=== PATIENT | female | born 1945 | race Caucasian/White ===

== ENCOUNTER → 2017-01-17 | Outpatient (CLI) | payer OTHER ==
[~2017-01-17] MED LIST: ASPI1TAB83 PO; ATEN25TA PO; LOSA50TA6 PO; OMEP20CA9 PO; PRAV20TA PO; RSTOPS OPB
--- NOTE | 2017-01-18 14:54 | MAMMOGRAPHY REPORT ---
BILATERAL DIGITAL SCREENING MAMMOGRAM WITH CAD: 01/17/2017 CLINICAL HISTORY: Routine screening. Patient has no complaints. TECHNIQUE: Current study was also evaluated with a Computer Aided Detection (CAD) system. Bilateral CC and MLO views were obtained. COMPARISON: Comparison is made to exams dated: 01/17/2016 mammogram, 01/10/2015 mammogram, 01/07/2014 m ammogram, 01/05/2013 mammogram, 01/03/2012 mammogram, and 01/01/2011 mammogram - [facility]. BREAST COMPOSITION: The tissue of both breasts is heterogeneously dense, which may obscure small mas ses. FINDINGS: A circumscribed round 8 mm mass is seen within the left lower inner quadrant, for which sp ot compression tomosynthesis views and possible breast ultrasound are recommended for further evaluat ion. This likely represents a cyst. Additionally, there are adjacent asymmetries in the left medial breast posteriorly, likely projecting at approximately 9:00 on the MLO view, for which spot compress ion views and possible ultrasound are recommended. The remainder of both breasts are stable compared to prior exams, without suspicious masses, calcific ations, or areas of architectural distortion noted. Scattered bilateral benign-appearing calcificati ons are not significantly changed. IMPRESSION: ACR BI-RADS CATEGORY 0: INCOMPLETE EVALUATION: NEED ADDITIONAL IMAGING EVALUATION Left breast mass and left breast asymmetries, for which additional imaging evaluation is recommended. The patient will be called to schedule an appointment. Approximately 10% of breast cancers are not detected with mammography. A negative mammographic report should not delay biopsy if a clinically suggestive mass is present. Mabel Hoang M.D. /:01/17/2017 16:29:54 Automatic Pinsetter Adjuster: Beronica HAQ(R)(M), [facility] letter sent: Addl Imaging 0 BI-RADS Code: ACR BI-RADS Category 0: Incomplete Evaluation: Need Additional Imaging Evaluation
== END | disposition home or self-care (01) ==
LOC: C.MAMM 09:44
PROVIDERS: ATTEND Obstetrics & Gynecology
DX: Z12.31 Encounter for screening mammogram for malignant neoplasm of breast (principal); N63 Unspecified lump in breast; N64.89 Other specified disorders of breast

== ENCOUNTER → 2017-01-28 | Outpatient (CLI) | payer OTHER ==
--- NOTE | 2017-01-28 14:16 | MAMMOGRAPHY REPORT ---
UNILATERAL LEFT DIGITAL DIAGNOSTIC MAMMOGRAM TOMOSYNTHESIS AND TARGETED BILATERAL ULTRASOUND: 01/29/20 CLINICAL HISTORY: 72-year-old woman called back from screening mammography for a partially circumscri bed 8mm mass in the lower inner quadrant of the left breast, and nodular asymmetries in the medial po sterior breast. At the time of diagnostic evaluation in the left breast, rereview of the full-field screening mammograms demonstrated another nodular asymmetry in the medial far posterior right breast on the CC view, which was also worked up with additional ultrasound. TECHNIQUE: Spot compression left CC and MLO 2-D and tomosynthesis images were obtained. COMPARISON: Comparison is made to exams dated: 01/17/2017 mammogram, 01/17/2016 mammogram, 01/10/2015 m ammogram, 07/22/2014 mammogram, 01/20/2014 ultrasound, and 01/20/2014 mammogram - [facility]. BREAST COMPOSITION: The tissue of the left breast is heterogeneously dense, which may obscure small masses. FINDINGS: Spot compression views of the left breast demonstrate persistence of a well-circumscribed, 7.4 x 7.0 mm mass in the lower inner anterior left breast. No associated calcification or architectu ral distortion. There is a 4.6 mm round, partially circumscribed mass in the medial posterior left b reast in the area of asymmetry, and possible second low density 5 mm mass in the area of second asymm etry. These are thought to project just above the posterior nipple line and just below the posterior nipple line on the spot compression MLO view. No focal area of architectural distortion or suspicio us calcifications are seen. Targeted ultrasound was performed throughout the medial left breast. In the 9:00 axis, 2 cm from the nipple, there is a round anechoic benign simple cyst with posterior acoustic enhancement, measuring 6.2 x 6.5 x 6.4 mm. This is thought to correlate with the dominant circumscribed mammographic mass a nd is benign. Other scattered cysts are identified in the left breast, within the 10:00 axis, 57 m f rom the nipple, measuring 3.9 x 4.1 x 5.6 mm, and in the 10:00 axis, 4 cm from the nipple, measuring 4.9 x 3.0 x 6.8 mm. Another anechoic circumscribed oval cyst is seen in the 11:00 left breast, 4 cm from the nipple, measuring 6.2 x 3.4 x 5.4 mm. Targeted ultrasound was performed at the medial right breast to assess for the nodular asymmetry in t he medial posterior aspect of the breast on the CC view. Scattered anechoic cysts are identified. I n particular, in the 12:00 right breast, 4 cm from the nipple, there is an oval circumscribed anechoi c cyst with posterior acoustic enhancement, measuring 6.4 x 3.1 x 5.2 mm. Another rounded anechoic c yst in the 2:00 right breast, 5 cm from the nipple, measures 6.0 x 4.7 x 6.7 mm. 2 cysts are identif ied in the 2:00 right breast 2 cm from the nipple, 1 cm deep to the dermis, the larger measures 6.1 x 2.5 mm. There is a questionable isoechoic to hypoechoic lesion in the 2:30 right breast, 4 cm from the nipple, measuring approximately 2.5 x 3.0 x 2.8 mm. Given its persistence in both planes this co uld represent an indeterminate solid mass versus prominent fat lobule. Nevertheless, it is different in appearance from all the other cysts identified in both breasts and definitive characterization wi th an ultrasound-guided core needle biopsy is recommended. IMPRESSION: ACR BI-RADS CATEGORY 4: SUSPICIOUS, TARGETED ULTRASOUND ACR BI-RADS CATEGORY 4: SUSPICIO US 1. Asymmetries and mass in the medial left breast corresponding to benign anechoic simple cysts on u ltrasound. 2. There are other cysts throughout the medial right breast on ultrasound, compatible with fibrocyst ic changes. 3. However, there is an indeterminate hypoechoic solid-appearing mass measuring 3 mm in the 2:30 rig ht breast, 4 cm from the nipple, which was incidentally identified on ultrasound. This mass is indet erminate, warranting definitive characterization with an ultrasound-guided core biopsy. These results and recommendations were discussed with the patient at the time of the exam. She tenta tively scheduled the biopsy prior to leaving our department. Approximately 10% of breast cancers are not detected with mammography. A negative mammographic report should not delay biopsy if a clinically suggestive mass is present. Lilian Alfonso M.D. ay/:01/28/2017 13:35:24 Bi Architect: Anna Pop, [facility] letter sent: Abnormal / BI-RADS Code: ACR BI-RADS Category 4: Suspicious Ultrasound BI-RADS: ACR BI-RADS Category 4: Suspici ous
== END | disposition home or self-care (01) ==
LOC: C.MAMM 10:33
PROVIDERS: ATTEND Obstetrics & Gynecology
DX: N63.0 Unspecified lump in unspecified breast (principal); R92.8 Other abnormal and inconclusive findings on diagnostic imaging of breast; N60.02 Solitary cyst of left breast

== ENCOUNTER → 2017-02-06 | Outpatient (CLI) | payer OTHER ==
--- NOTE | 2017-02-06 11:51 | Discharge Instructions ---
Discharge Instructions Procedure Procedure Date: Feb 06, 2017. Reason for visit: Right Mass. Discharge Discharge Date: Feb 06, 2017. Discharge Diagnosis: post right breast ultrasound guided core biopsy Instructions Activity Recommendations: Additional Limitations (see below) Return to School/Work: no limitations Recommended Home Diet: No Limitations Provider Instructions: ACTIVITY RECOMMENDATIONS: * No lifting, pushing, pulling or exercising the affected side for three days. RETURN TO SCHOOL/WORK: * You may return to work/school after the procedure, but do not perform any strenuous activities for 24 to 48 hours. MEDICATIONS: * Tylenol (two 325 mg) every four to six hours if needed for mild pain (if not allergic to Tylenol). DIET: * Resume previous diet. SPECIAL CARE INSTRUCTIONS: * Keep biopsy site dry for 24 hours. May shower after 24 hours, but do not soak (bathe) incision. * May remove Tegaderm (plastic patch) tomorrow AFTER showering. * Leave the steri-strips on for one week. Allow the steri-strips to fall off by themselves. If not off after one week, you may remove them. You may place a Bandaid crosswise over the strips, if desired. * Apply ice 10 minutes on and 10 minutes off as needed. * Wear a bra at bedtime to sleep more comfortably for 2-3 days. * Your referring physician should have the results after approximately 5 to 7 business days. * Call for unusual bleeding, fever, drainage, etc or if you have any questions call [phone] during normal business hours or after hours call Dr Alfonso, . FOLLOW UP VISIT: Follow-up with Referring Physician as scheduled. Allergies Coded Allergies: No Known Allergies (Verified Allergy, Unknown, 09/14/03) Lesvia Garg Recommendations: Call your doctor if: * Temperature above 101 degrees * Pain not relieved by pain medicine ordered * There is increased drainage or redness from any incision * You have any unanswered questions or concerns. Your Doctors Instructions noted above were prepared by provider Lilian Alfonso. Patient Signature Section: Patient Instructions Signature Page Manda Raymond Patient (or Guardian) Signature/Date: I have read and understand the instructions given to me by my caregivers. Caregiver/RN/Doctor Signature/Date: The above-named patient and/or guardian has received patient instructions on this date. + Original Patient Signature Page (only) stays with chart. Please make copy for patient.
--- NOTE | 2017-02-07 07:44 | MAMMOGRAPHY REPORT ---
ULTRASOUND GUIDED BIOPSY RIGHT BREAST: 02/06/2017 CLINICAL HISTORY: 2.8 mm hypoechoic solid versus cystic mass incidentally identified in the 2:30 righ t breast, 4 cm from the nipple, on ultrasound. Patient presents for ultrasound-guided core biopsy. COMPARISON: Comparison is made to exams dated: 01/28/2017 ultrasound, 01/28/2017 mammogram, 02/06/2017 mammogram, 01/17/2016 mammogram, 01/10/2015 mammogram, and 07/22/2014 mammogram - [facility]. PATIENT CONSENT: The procedure, risks and benefits were discussed with the patient and informed conse nt was obtained both verbally and in writing. Specific risks to this procedure include: bleeding, in fection, puncture of adjacent structure, nontarget biopsy, sampling error, pain, metal allergy and me dication reaction. PROCEDURE DESCRIPTION: A time out was performed and the right breast was agreed as the site of biopsy . The skin was prepped and draped in the usual sterile fashion. The 2.8 mm hypoechoic solid versus cy stic mass in the 2:30 right breast was chosen as the target for biopsy. Subcutaneous and intraparench ymal 1% buffered lidocaine, with and without epinephrine, was administered as local anesthesia. A ski n incision was made. Through the incision, 3 samples were taken with a 14 gauge Achieve biopsy devic e. This lesion was less conspicuous after the first biopsy sample suggesting cystic nature. A ribbo n shaped metallic marker was placed at the biopsy site. Hemostasis was achieved after manual compress ion. The patient tolerated the procedure well and there was no immediate complication. The samples w ere sent to the pathology department in an appropriately labeled container. Postprocedure right CC and ML 2-D and tomosynthesis images were obtained. A new ribbon-shaped biopsy marker clip is identified in the 2:30 posterior right breast, at the site of the biopsied hypoechoic solid versus cystic mass seen on ultrasound. There is no significant post biopsy hematoma. IMPRESSION: ULTRASOUND GUIDED BIOPSY Status post ultrasound guided core biopsy of an indeterminate 2.8 mm solid versus cystic mass in the 2:30 right breast, incidentally identified on ultrasound, in the background of bilateral fibrocystic changes also identified on ultrasound. The patient will receive notification of the biopsy results from her referring physician. Lilian Alfonso M.D. ay/:02/06/2017 12:26:01 Shower Screen Installer: Sandra HAQ(R)(M), [facility]
--- NOTE | 2017-02-07 07:49 | MAMMOGRAPHY REPORT ---
UNILATERAL RIGHT DIGITAL DIAGNOSTIC MAMMOGRAM TOMOSYNTHESIS: 02/06/2017 CLINICAL HISTORY: Status post ultrasound guided core biopsy of an indeterminate hypoechoic solid vers us cystic mass in the 2:30 right breast, 4 cm from the nipple incidentally identified on ultrasound. Please refer to the report from right breast ultrasound guided core biopsy performed at the same time for full detail. IMPRESSION: POST PROCEDURE IMAGING FOR MARKER PLACEMENT Please refer to the report from right breast ultrasound guided core biopsy performed at the same time for full detail. Approximately 10% of breast cancers are not detected with mammography. A negative mammographic report should not delay biopsy if a clinically suggestive mass is present. Lilian Alfonso M.D. ay/:02/06/2017 11:52:50 Boat Pilot: Sandra HAQ(Hossein)(Ricardo), [facility] BI-RADS Code: Post Procedure Imaging For Marker Placement
== END | disposition home or self-care (01) ==
LOC: C.MAMM 10:44
PROVIDERS: ATTEND Obstetrics & Gynecology
DX: N60.91 Unspecified benign mammary dysplasia of right breast (principal)

== ENCOUNTER → 2017-07-24 | Outpatient (CLI) | payer OTHER ==
[~2017-07-24] MED LIST changes: +DPRSCR15 TOP
--- NOTE | 2017-07-24 11:31 | DIAGNOSTIC IMAGING REPORT ---
R KNEE 2 VIEWS ROUTINE CLINICAL HISTORY: RIGHT KNEE PAIN COMPARISON: None. DISCUSSION: No fractures or dislocations are visualized. 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 There is no periprosthetic lucency. IMPRESSION: Postsurgical changes of a total right knee arthroplasty. No acute fractures. No prosthetic abnormalities identified Electronically signed by: Arvind Nuñez M.D. 07/24/2017 11:30 AM Dictated Date/Time: 07/24/2017 11:28 AM
== END | disposition home or self-care (01) ==
LOC: C.RADBC 11:14
PROVIDERS: ATTEND Physician Assistant
DX: M25.561 Pain in right knee (principal)

== ENCOUNTER → 2017-08-07 | Outpatient (CLI) | payer OTHER ==
--- NOTE | 2017-08-07 15:14 | MAMMOGRAPHY REPORT ---
BILATERAL DIGITAL DIAGNOSTIC MAMMOGRAM TOMOSYNTHESIS WITH CAD: 08/07/2017 CLINICAL HISTORY: The patient presents for short interval follow-up. She underwent an ultrasound-randy ded core needle biopsy of a right 230 breast mass which yielded benign fibrocystic change and focal u sual ductal hyperplasia. The patient reports no new lumps or other complaints. TECHNIQUE: Breast tomosynthesis in addition to standard 2D mammography was performed. Current study was also evaluated with a Computer Aided Detection (CAD) system. Bilateral CC and MLO 2D and tomosyn thesis images were obtained. COMPARISON: Comparison is made to exams dated: 02/06/2017 ultrasound biopsy, 02/06/2017 mammogram, 1 ultrasound, 01/28/2017 mammogram, 01/17/2017 mammogram, and 01/17/2016 mammogram - [facility]. BREAST COMPOSITION: The tissue of both breasts is heterogeneously dense, which may obscure small mas ses. FINDINGS: A biopsy marker clip is noted in the right upper inner quadrant status post benign ultrasou nd-guided core needle biopsy. Again noted are a few small circumscribed benign-appearing masses bila terally, left breast greater than right. The largest mass in the left breast is an oval circumscribe d 9 mm mass within the left lower inner quadrant, which is slightly larger in size compared to the pr ior exam although was shown to represent a benign simple cyst on the prior 2017 ultrasound exam. Sca ttered bilateral benign-appearing calcifications are not significantly changed. There are no suspici ous masses, calcifications, or areas of architectural distortion noted in either breast. IMPRESSION: ACR BI-RADS CATEGORY 2: BENIGN There is no mammographic evidence of malignancy in either breast. A 1 year screening mammogram is rec ommended. The patient has been verbally notified of the results. Approximately 10% of breast cancers are not detected with mammography. A negative mammographic report should not delay biopsy if a clinically suggestive mass is present. Mabel Hoang M.D. /:08/07/2017 12:01:02 Radio Station Audio Engineer: Anna Pop, [facility] letter sent: Normal 1/2 BI-RADS Code: ACR BI-RADS Category 2: Benign
== END | disposition home or self-care (01) ==
LOC: C.MAMM 10:35
PROVIDERS: ATTEND Obstetrics & Gynecology
DX: N63.12 Unspecified lump in the right breast, upper inner quadrant (principal)